=== PATIENT | female | born 1960 | race Caucasian/White ===

== ENCOUNTER 2018-04-11 13:10 | Emergency (ER) | payer OTHER ==
[~2018-04-11] VITALS: Ht 177.8 cm; Wt 81.6 kg
[2018-04-11 13:25] VITALS: Ht 177.8 cm; Wt 81.6 kg
[2018-04-11 14:08] VITALS: BP 137/89
== END 2018-04-11 14:08 | disposition home or self-care (01) ==
LOC: ED 13:10
DX: S09.8XXA Other specified injuries of head, initial encounter (principal); W01.0XXA Fall on same level from slipping, tripping and stumbling without subsequent striking against object, initial encounter; Y93.89 Activity, other specified; Y92.89 Other specified places as the place of occurrence of the external cause; Y99.8 Other external cause status

== ENCOUNTER 2018-06-08 10:06 | Emergency (ER) | payer OTHER ==
[~2018-06-08] VITALS: Ht 182.9 cm; Wt 84.8 kg
[2018-06-08 10:14] VITALS: BP 126/58; Ht 182.9 cm; Wt 84.8 kg
== END 2018-06-08 12:00 | disposition home or self-care (01) ==
LOC: ED 10:06
DX: S09.8XXA Other specified injuries of head, initial encounter (principal); F79 Unspecified intellectual disabilities; W18.09XA Striking against other object with subsequent fall, initial encounter; Y93.89 Activity, other specified; Y92.89 Other specified places as the place of occurrence of the external cause; Y99.8 Other external cause status

== ENCOUNTER 2018-06-23 03:08 | Emergency (ER) | payer OTHER ==
[2018-06-23 06:22] VITALS: BP 120/72
== END 2018-06-23 06:35 | disposition home or self-care (01) ==
LOC: ED 03:08
DX: J02.9 Acute pharyngitis, unspecified (principal); E03.9 Hypothyroidism, unspecified; F31.9 Bipolar disorder, unspecified; F79 Unspecified intellectual disabilities

== ENCOUNTER 2019-04-07 10:46 | Emergency (ER) | payer OTHER ==
[~2019-04-07] VITALS: Ht 177.8 cm; Wt 81.6 kg
[2019-04-07 10:48] VITALS: Ht 177.8 cm; Wt 81.6 kg
[2019-04-07 11:32] LABS: BASOPHIL % 0.8 % (0-2); PLATELET COUNT 149 x10^3mcL (130-400); RED CELL DISTRIBUTION WIDTH 13.4 % (11.5-14.5)
[2019-04-07 12:13] LABS: ALBUMIN 3.3 g/dL (3.4-5.0); BILIRUBIN TOTAL 0.3 mg/dL (0.20-1.00); CALCIUM 8.3 mg/dL (8.5-10.1); CREATININE SERUM 1.1 mg/dL (0.6-1.0); POTASSIUM SERUM 4.3 mmol/L (3.5-5.1); TOTAL PROTEIN, SERUM 6.4 g/dL (6.4-8.2)
[2019-04-07 14:13] VITALS: BP 108/74
== END 2019-04-07 14:13 | disposition home or self-care (01) ==
LOC: ED 10:46
PROVIDERS: Emergency Medicine
DX: N39.0 Urinary tract infection, site not specified (principal); K59.00 Constipation, unspecified; E03.9 Hypothyroidism, unspecified; F31.9 Bipolar disorder, unspecified; Z90.89 Acquired absence of other organs
CPT/HCPCS: J0696; J1885; J7060

== ENCOUNTER 2019-07-10 12:22 | Inpatient (IN) | payer OTHER ==
[~2019-07-10] VITALS: Ht 180.3 cm; Wt 84.8 kg
[2019-07-10 12:33] VITALS: Ht 180.3 cm; Wt 84.8 kg
[2019-07-10 13:43] LABS: BASOPHIL % 0.3 % (0-2); PLATELET COUNT 228 x10^3mcL (130-400); RED CELL DISTRIBUTION WIDTH 13.8 % (11.5-14.5)
[2019-07-10 15:33] LABS: ALBUMIN 3.7 g/dL (3.4-5.0); CALCIUM 10.1 mg/dL (8.5-10.1); CARBON DIOXIDE 28.4 mmol/L (21-32); CHLORIDE SERUM 105 mmol/L (98-107); CREATININE SERUM 0.8 mg/dL (0.6-1.0); GFR1 > 60 mL/min; GLUCOSE SERUM 102 mg/dL (74-106); SODIUM SERUM 141 mmol/L (136-145); TOTAL PROTEIN, SERUM 7.6 g/dL (6.4-8.2)
[2019-07-10 15:34] LABS: ALKALINE PHOSPHATASE 141 U/L (46-116); ALT/SGPT 27 U/L (14-59); AST/SGOT 19 U/L (15-37); BILIRUBIN TOTAL 0.3 mg/dL (0.20-1.00); LIPASE 57 IU/L (73-393)
[2019-07-10 15:36] LABS: POTASSIUM SERUM 5.8 mmol/L (3.5-5.1)
[2019-07-10] MEDS ORDERED: BUSPIRONE HCL10 MG PO (16:06)
[2019-07-10] MEDS ORDERED: TRAZODONE150 M1 PO (16:07)
[2019-07-10] MEDS ORDERED: BENZTROPINE MESY1 MG PO (16:07)
[2019-07-10] MEDS ORDERED: QUETIAPINE FUM200 M2 PO ×2 (16:07→16:08)
[2019-07-10] MEDS ORDERED: OLANZAPINE20 M2 PO (16:08)
[2019-07-10] MEDS ORDERED: TEMAZEPAM30 MG PO (16:09)
[2019-07-10] MEDS ORDERED: ALL DAY ALLERGY10 M2 PO (16:09)
[2019-07-10] MEDS ORDERED: LEVOTHYROXIN0.025 M2 PO (16:10)
[2019-07-10] MEDS ORDERED: STOOL SOFTENER50 MG PO (16:10)
[2019-07-10] MEDS ORDERED: MELATONIN5 M5 PO (16:11)
[2019-07-10] MEDS ORDERED: LORATADINE10 M3 PO (16:11)
[2019-07-10 17:26] VITALS: BP 174/69
[2019-07-10 17:56] VITALS: BP 113/80
[2019-07-10 20:54] VITALS: BP 117/68
[2019-07-11 05:29] VITALS: BP 102/71
[2019-07-11 08:51] VITALS: BP 122/79
[2019-07-11 12:23] VITALS: BP 114/75
[2019-07-11 14:42] LABS: PLATELET COUNT 249 x10^3mcL (130-400); RED CELL DISTRIBUTION WIDTH 14.1 % (11.5-14.5)
[2019-07-11 15:30] LABS: CALCIUM 9.4 mg/dL (8.5-10.1); CARBON DIOXIDE 29.8 mmol/L (21-32); CHLORIDE SERUM 104 mmol/L (98-107); CREATININE SERUM 0.9 mg/dL (0.6-1.0); GFR1 > 60 mL/min; GLUCOSE SERUM 109 mg/dL (74-106); POTASSIUM SERUM 4.6 mmol/L (3.5-5.1); SODIUM SERUM 140 mmol/L (136-145)
[2019-07-11 17:01] VITALS: BP 117/76
[2019-07-11 20:56] VITALS: BP 118/65
[2019-07-12 06:15] VITALS: BP 109/74
[2019-07-12 06:39] LABS: BASOPHIL % 0.8 % (0-2); PLATELET COUNT 243 x10^3mcL (130-400); RED CELL DISTRIBUTION WIDTH 14.1 % (11.5-14.5)
[2019-07-12 07:48] LABS: CARBON DIOXIDE 25.9 mmol/L (21-32); CHLORIDE SERUM 105 mmol/L (98-107); GLUCOSE SERUM 98 mg/dL (74-106); POTASSIUM SERUM 4.4 mmol/L (3.5-5.1); SODIUM SERUM 139 mmol/L (136-145)
[2019-07-12 07:49] LABS: ALBUMIN 3.3 g/dL (3.4-5.0); AST/SGOT 14 U/L (15-37); BILIRUBIN TOTAL 0.27 mg/dL (0.20-1.00); CALCIUM 9.5 mg/dL (8.5-10.1); CREATININE SERUM 0.7 mg/dL (0.6-1.0); GFR1 > 60 mL/min
[2019-07-12 07:50] LABS: ALKALINE PHOSPHATASE 139 U/L (46-116); ALT/SGPT 19 U/L (14-59)
[2019-07-12 08:51] VITALS: BP 117/85
[2019-07-12 11:49] VITALS: BP 118/78
[2019-07-12 16:52] VITALS: BP 114/72
[2019-07-12 20:55] VITALS: BP 120/61
[2019-07-13 05:47] VITALS: BP 122/89
[2019-07-13 06:38] LABS: BASOPHIL % 0.4 % (0-2); PLATELET COUNT 275 x10^3mcL (130-400); RED CELL DISTRIBUTION WIDTH 13.8 % (11.5-14.5)
[2019-07-13 07:19] LABS: CALCIUM 9.5 mg/dL (8.5-10.1); CARBON DIOXIDE 32.9 mmol/L (21-32); CHLORIDE SERUM 102 mmol/L (98-107); CREATININE SERUM 0.8 mg/dL (0.6-1.0); GFR1 > 60 mL/min; GLUCOSE SERUM 98 mg/dL (74-106); POTASSIUM SERUM 4.7 mmol/L (3.5-5.1); SODIUM SERUM 142 mmol/L (136-145)
[2019-07-13 08:15] VITALS: BP 114/63
[2019-07-13 08:49] LABS: ALBUMIN 3.9 g/dL (3.4-5.0); ALKALINE PHOSPHATASE 140 U/L (46-116); ALT/SGPT 26 U/L (14-59); AST/SGOT 18 U/L (15-37); BILIRUBIN TOTAL 0.4 mg/dL (0.20-1.00); CALCIUM 9.9 mg/dL (8.5-10.1); CARBON DIOXIDE 32.2 mmol/L (21-32); CHLORIDE SERUM 100 mmol/L (98-107); CREATININE SERUM 0.8 mg/dL (0.6-1.0); GFR1 > 60 mL/min; GLUCOSE SERUM 113 mg/dL (74-106); POTASSIUM SERUM 4.7 mmol/L (3.5-5.1); SODIUM SERUM 139 mmol/L (136-145); TOTAL PROTEIN, SERUM 7.8 g/dL (6.4-8.2)
[2019-07-13 11:58] VITALS: BP 106/78
[2019-07-13 16:20] VITALS: BP 134/70
[2019-07-13 20:12] VITALS: BP 142/88
[2019-07-14 05:58] VITALS: BP 122/67
[2019-07-14 06:18] LABS: BASOPHIL % 0.5 % (0-2); RED CELL DISTRIBUTION WIDTH 13.7 % (11.5-14.5)
[2019-07-14 06:41] LABS: PLATELET COUNT 223 x10^3mcL (130-400)
[2019-07-14 09:40] VITALS: BP 131/61
[2019-07-14 12:33] VITALS: BP 135/67
[2019-07-14 13:04] VITALS: BP 135/67
== END 2019-07-14 14:10 | disposition home or self-care (01) | DRG 254 ==
LOC: ED 12:22 → MU 15:54
PROVIDERS: Emergency Medicine; Internal Medicine; Internal Medicine Pulmonary Disease; ADMIT Internal Medicine Pulmonary Disease
PROC: 0DBF8ZX Excision of Right Large Intestine, Via Natural or Artificial Opening Endoscopic, Diagnostic (ICD-10-PCS; principal; 2019-07-14 09:15)
DX: K59.39 Other megacolon (principal); E87.5 Hyperkalemia; K56.41 Fecal impaction; E03.9 Hypothyroidism, unspecified; F31.9 Bipolar disorder, unspecified; F70 Mild intellectual disabilities
CPT/HCPCS: 45378; G0378; J0696; J1200; J1610; J2250; J2310; J3010; J3490; J7030; Q0092